=== PATIENT | male | born 2000 | race Caucasian/White ===

== ENCOUNTER 2021-06-23 17:29 | Emergency (ER) | payer MEDICAID ==
[2021-06-23] MEDS ORDERED: Sulfameth/Trimethoprim DS 800-160mg TAB ONE (17:58)
== END 2021-06-23 18:03 | disposition home or self-care (01) ==
LOC: NAV ERS 17:29
DX: S81.832A Puncture wound without foreign body, left lower leg, initial encounter (principal); W45.8XXA Other foreign body or object entering through skin, initial encounter; W18.40XA Slipping, tripping and stumbling without falling, unspecified, initial encounter; Y93.01 Activity, walking, marching and hiking
CPT/HCPCS: 99283